=== PATIENT | male | born 1990 | race Caucasian/White ===

== ENCOUNTER 2019-01-18 17:10 | Emergency (ER) | payer MEDICAID ==
[~2019-01-18] VITALS: Ht 182.9 cm; Wt 92.0 kg
[~2019-01-18 17:10] MED LIST: ESCI10TA PO; NO HOME MEDS
[2019-01-18 17:13] VITALS: BP 125/78
== END 2019-01-18 18:56 | disposition home or self-care (01) ==
LOC: ER 17:11
DX: M79.672 Pain in left foot (principal); F10.99 Alcohol use, unspecified with unspecified alcohol-induced disorder; Z79.899 Other long term (current) drug therapy; Y90.9 Presence of alcohol in blood, level not specified
CPT/HCPCS: 73610; 73630; 99283

== ENCOUNTER 2020-01-01 13:01 | Inpatient (IN) | payer MEDICAID ==
[~2020-01-01] VITALS: Ht 180.3 cm; Wt 86.4 kg
[2020-01-01] MEDS ORDERED: naloxone 2mg/2ml inj ONE (13:40)
[2020-01-01] MEDS ORDERED: normal saline 1000ML IV soln IV ONE (13:40)
[2020-01-01 13:47] LABS: BASOPHILS % (AUTO) 0.6 % (0-1); EOSINOPHILS # (AUTO) 0.2 X10'3 (0-0.9); EOSINOPHILS % (AUTO) 2.9 % (0-6); HEMOGLOBIN 12.4 g/dl (14.0-17.9); LYMPHOCYTES # (AUTO) 1.9 X10'3 (1.1-4.8); LYMPHOCYTES % (AUTO) 31.9 % (21-51); MEAN CORPUSCULAR HEMOGLOBIN 26.3 PG (27.0-31.0); MEAN CORPUSCULAR HGB CONC 32.7 g/dL (33.0-36.5); MEAN CORPUSCULAR VOLUME 80.5 FL (78-98); MEAN PLATELET VOLUME 7.3 FL (7.4-10.4); MONOCYTES # (AUTO) 0.4 X10'3 (0-0.9); MONOCYTES % (AUTO) 7.5 % (2-12); NEUTROPHILS # (AUTO) 3.4 X10'3 (1.8-7.7); NEUTROPHILS % (AUTO) 57.1 % (42-75); PLATELET COUNT 323 X10'3 (140-440); RED BLOOD COUNT 4.72 X10'6 (4.70-6.10); RED CELL DISTRIBUTION WIDTH 14.1 % (11.5-14.5)
[2020-01-01 14:00] LABS: ALANINE AMINOTRANSFERASE 26 U/L (12-78); ALBUMIN 3.7 G/DL (3.4-5.0); ALBUMIN/GLOBULIN RATIO 1.1 (1.1-1.5); ALKALINE PHOSPHATASE 86 IU/L (46-116); ANION GAP 7 (8-16); ASPARTATE AMINO TRANSFERASE 21 U/L (10-37); BILIRUBIN,TOTAL 0.7 MG/DL (0.1-1.0); BLOOD UREA NITROGEN 7 MG/DL (7-18); BUN/CREATININE RATIO 7.1 (5.4-32.0); CHLORIDE 103 MMOL/L (99-107); CREATININE 0.98 MG/DL (0.60-1.10); GLUCOSE 98 MG/DL (70-104); POTASSIUM 3.4 MMOL/L (3.5-5.1); SODIUM 140 MMOL/L (135-145); TOTAL CARBON DIOXIDE 30.3 MMOL/L (24-32); TOTAL PROTEIN 7.1 G/DL (6.4-8.2); eGFR 89 ML/MIN
[2020-01-01 14:09] LABS: ACETAMINOPHEN < 2.0 UG/ML (10-30); ETHANOL < 0.010 GM/DL (0.0-0.010)
[2020-01-01] MEDS ORDERED: magnesium 2GM in 50ml NS 50 ML IV PRN (15:25)
[2020-01-01] MEDS ORDERED: potassium CL 10mEq/100ml bag 100 ML IV PRN ×2 (15:25)
[2020-01-01] MEDS ORDERED: acetaminophen 325mg tablet PO PRN ×2 (15:25)
[2020-01-01] MEDS ORDERED: potassium Cl 20 mEq SR tablet PO PRN (15:25)
[2020-01-01] MEDS ORDERED: OLANZapine **IM** 10 mg inj. IM PRN (15:25)
[2020-01-01] MEDS ORDERED: magnesium Cl slow-release 64mg tablet PO PRN (15:25)
[2020-01-01] MEDS ORDERED: magnesium hydroxide 30ml (MOM) UD suspension PO PRN (15:25)
[2020-01-01] MEDS ORDERED: ondansetron/PF 4mg/2ml inj IV PRN (15:25)
[2020-01-01] MEDS ORDERED: mag hydrox/Alum hydrox/simeth 30ml oral suspension PO PRN (15:25)
[2020-01-01] MEDS ORDERED: metoclopramide 5 mg/ml inj IV PRN (15:25)
[2020-01-01] MEDS ORDERED: magnesium 4gm in 100ml NS 100 ML IV PRN (15:25)
[2020-01-01] MEDS: normal saline 1000ml 1,000 ML IV SCH (15:47)
[2020-01-01 15:57] LABS: URINE AMPHETAMINE SCREEN POSITIVE (Neg); URINE BARBITUATE SCREEN NEGATIVE (Neg); URINE BENZODIAZEPINES SCREEN POSITIVE (Neg); URINE CANNABINOID SCREEN NEGATIVE (Neg); URINE COCAINE SCREEN NEGATIVE (Neg); URINE METHADONE SCREEN POSITIVE (Neg); URINE OPIATE SCREEN POSITIVE (Neg); URINE PHENCYCLIDINE SCREEN NEGATIVE (Neg)
[2020-01-01] MEDS ORDERED: LORazepam 2 mg/ml vial IV PRN (16:30)
--- NOTE | 2020-01-01 16:40 | NUR ---
pharmacist and primary rn were unable to do a med rec d/t pt being unresponsive to questions
--- NOTE | 2020-01-01 18:30 | NUR ---
PATIENT IN BED EYES CLOSED RR EVEN UN LABORED AIRWAY PATENT NO OBSERVABLE S/S OF DECREASE GCS PATIENT PATIENT EASY TO AROUSE WITH LIGHT PAIN STIMULATION GCS 14
[2020-01-01] MEDS: K and/or MAG REPLACEMENT MC SCH (20:00)
--- NOTE | 2020-01-01 20:29 | NUR ---
Patient in room ED 18. I have received report from BENJI Wellington and had the opportunity to ask questions and assume patient care.
[2020-01-01 21:00] VITALS: BP 109/53
[2020-01-02 00:11] VITALS: BP 106/68
[2020-01-02] MEDS: normal saline 1000ml 1,000 ML IV SCH ×4 (01:33→21:41)
[2020-01-02 05:55] LABS: ANION GAP 11 (8-16); BLOOD UREA NITROGEN 5 MG/DL (7-18); BUN/CREATININE RATIO 6.3 (5.4-32.0); CALCIUM 8.3 MG/DL (8.5-10.1); CHLORIDE 109 MMOL/L (99-107); GLUCOSE 84 MG/DL (70-104); MAGNESIUM 2.1 MG/DL (1.5-2.4); POTASSIUM 3.3 MMOL/L (3.5-5.1); SODIUM 144 MMOL/L (135-145); TOTAL CARBON DIOXIDE 24.4 MMOL/L (24-32); eGFR > 90 ML/MIN
[2020-01-02 06:00] LABS: HEMOGLOBIN 12.2 g/dl (14.0-17.9); MEAN CORPUSCULAR HEMOGLOBIN 26.5 PG (27.0-31.0); MEAN CORPUSCULAR HGB CONC 32.9 g/dL (33.0-36.5); MEAN CORPUSCULAR VOLUME 80.6 FL (78-98); MEAN PLATELET VOLUME 7.2 FL (7.4-10.4); PLATELET COUNT 318 X10'3 (140-440); RED BLOOD COUNT 4.59 X10'6 (4.70-6.10); RED CELL DISTRIBUTION WIDTH 14.3 % (11.5-14.5); WHITE BLOOD COUNT 6.8 X10'3 (4.5-11.0)
--- NOTE | 2020-01-02 06:28 | NUR ---
Problems reprioritized. Patient report given, questions answered & plan of care reviewed with BENJI Marquis.
--- NOTE | 2020-01-02 06:53 | NUR ---
Patient in room [facility]. I have received report from Michelle LEBLANC and had the opportunity to ask questions and assume patient care.
[2020-01-02] MEDS: K and/or MAG REPLACEMENT MC SCH ×2 (07:22→18:37)
[2020-01-02 07:45] VITALS: BP 140/83
[2020-01-02] MEDS: potassium Cl 20 mEq SR tablet PO PRN ×2 (09:53→18:35)
[2020-01-02] MEDS ORDERED: methadone 10mg tablet PO ONE (10:25)
[2020-01-02 11:38] VITALS: BP 127/90
--- NOTE | 2020-01-02 18:16 | NUR ---
Problems reprioritized. Patient report given, questions answered & plan of care reviewed with Michelle LEBLANC.
--- NOTE | 2020-01-02 18:27 | NUR ---
Patient in room [facility]. I have received report from BENJI Marquis and had the opportunity to ask questions and assume patient care.
[2020-01-02 19:52] VITALS: BP 109/71
--- NOTE | 2020-01-02 20:27 | NUR ---
Pt asked to go smoke when his father gets here. Advised not allowed. Denied offer to obtain nicotine patch.
[2020-01-02 23:56] VITALS: BP 107/66
[2020-01-03 05:25] LABS: HEMOGLOBIN 11.4 g/dl (14.0-17.9); MEAN CORPUSCULAR HEMOGLOBIN 26.5 PG (27.0-31.0); MEAN CORPUSCULAR HGB CONC 32.7 g/dL (33.0-36.5); MEAN CORPUSCULAR VOLUME 81.1 FL (78-98); MEAN PLATELET VOLUME 7.4 FL (7.4-10.4); PLATELET COUNT 261 X10'3 (140-440); RED BLOOD COUNT 4.31 X10'6 (4.70-6.10); RED CELL DISTRIBUTION WIDTH 14.4 % (11.5-14.5); WHITE BLOOD COUNT 4.8 X10'3 (4.5-11.0)
[2020-01-03 05:41] LABS: ALBUMIN 2.7 G/DL (3.4-5.0); ANION GAP 6 (8-16); BLOOD UREA NITROGEN 4 MG/DL (7-18); BUN/CREATININE RATIO 4.6 (5.4-32.0); CHLORIDE 108 MMOL/L (99-107); CREATININE 0.87 MG/DL (0.60-1.10); GLUCOSE 111 MG/DL (70-104); POTASSIUM 3.3 MMOL/L (3.5-5.1); SODIUM 142 MMOL/L (135-145); TOTAL CARBON DIOXIDE 28.2 MMOL/L (24-32); eGFR > 90 ML/MIN
--- NOTE | 2020-01-03 07:01 | NUR ---
Problems reprioritized. Patient report given, questions answered & plan of care reviewed with BENJI Franco
--- NOTE | 2020-01-03 07:02 | NUR ---
Patient in room [facility]. I have received report from Michelle Castrejon RN and had the opportunity to ask questions and assume patient care.
[2020-01-03] MEDS: normal saline 1000ml 1,000 ML IV SCH (07:25)
[2020-01-03 07:44] VITALS: BP 119/75
[2020-01-03] MEDS ORDERED: methadone 10mg tablet PO SCH (08:00)
[2020-01-03] MEDS: K and/or MAG REPLACEMENT MC SCH (08:57)
[2020-01-03] MEDS: potassium Cl 20 mEq SR tablet PO PRN (09:06)
[2020-01-03] MEDS ORDERED: pneumococcal 23-VAL P-sac vacc 25 mcg/0.5ml vial IMVAC ONE (10:00)
[2020-01-03] MEDS ORDERED: FLU VACC QS2020-21(6MOS UP)/PF 60 MCG/0.5 ML SYRINGE IMVAC ONE (10:00)
[2020-01-03 11:00] VITALS: BP 125/80
[2020-01-03] MEDS ORDERED: METH-603 PO (11:06)
--- NOTE | 2020-01-03 14:40 | NUR ---
Pt stable and appropriate for d/c. PIV d/c'd, cannula intact. Reviewed with patient all d/c instructions, meds, f/u appts to [facility], [facility]- pt verbalized understanding, opportunity to ask questions, answers provided. Pt to call PCP with any questions, concerns or s/sx of complications or return to nearest ED. Pt escorted to front lobby by staff member via w/c with all personal belongings. D/C'd home in private vehicle driven by family member.
== END 2020-01-03 14:40 | disposition home or self-care (01) | DRG 812 ==
LOC: ER 13:02 → ED HOLD 15:23 → SUR 3N 20:45
PROVIDERS: ADMIT Family Medicine; ATTEND Family Medicine
PROC: 3E02340 Introduction of Influenza Vaccine into Muscle, Percutaneous Approach (ICD-10-PCS; principal; 2020-01-03)
PROC: 3E0234Z Introduction of Serum, Toxoid and Vaccine into Muscle, Percutaneous Approach (ICD-10-PCS; 2020-01-03)
DX: T50.991A Poisoning by other drugs, medicaments and biological substances, accidental (unintentional), initial encounter (principal); E87.6 Hypokalemia; F13.10 Sedative, hypnotic or anxiolytic abuse, uncomplicated; F15.10 Other stimulant abuse, uncomplicated; G92 Toxic encephalopathy; Y92.89 Other specified places as the place of occurrence of the external cause; Z23 Encounter for immunization
CPT/HCPCS: 36415; 71045; 80048; 80053; 80305; 80320; 80329; 83735; 84443; 85025; 85027; 87081; 90732; 97116; 97161; 97530; 99285; G0378; J2060; J2310; J7030; Q2039

== ENCOUNTER 2020-01-06 03:41 | Emergency (ER) | payer MEDICAID ==
[~2020-01-06] VITALS: Ht 188 cm; Wt 100.0 kg
[~2020-01-06 03:41] MED LIST changes: -ESCI10TA PO; +METH-603 PO; -NO HOME MEDS
--- NOTE | 2020-01-06 03:59 | NUR ---
called poison control:they recomended that patient be observed for 4-6 hours until patient reaches [place].
[2020-01-06 04:17] LABS: BASOPHILS % (AUTO) 0.5 % (0-1); EOSINOPHILS # (AUTO) 0.1 X10'3 (0-0.9); EOSINOPHILS % (AUTO) 1.6 % (0-6); HEMATOCRIT 35.7 % (42.0-52.0); HEMOGLOBIN 11.8 g/dl (14.0-17.9); LYMPHOCYTES # (AUTO) 1.2 X10'3 (1.1-4.8); LYMPHOCYTES % (AUTO) 24.7 % (21-51); MEAN CORPUSCULAR HEMOGLOBIN 26.6 PG (27.0-31.0); MEAN CORPUSCULAR HGB CONC 33.1 g/dL (33.0-36.5); MEAN CORPUSCULAR VOLUME 80.1 FL (78-98); MEAN PLATELET VOLUME 6.9 FL (7.4-10.4); MONOCYTES # (AUTO) 0.4 X10'3 (0-0.9); MONOCYTES % (AUTO) 8.5 % (2-12); NEUTROPHILS # (AUTO) 3.3 X10'3 (1.8-7.7); NEUTROPHILS % (AUTO) 64.7 % (42-75); PLATELET COUNT 281 X10'3 (140-440); RED BLOOD COUNT 4.46 X10'6 (4.70-6.10); RED CELL DISTRIBUTION WIDTH 14.1 % (11.5-14.5)
[2020-01-06 04:32] LABS: ALANINE AMINOTRANSFERASE 18 U/L (12-78); ALBUMIN 3.2 G/DL (3.4-5.0); ALKALINE PHOSPHATASE 79 IU/L (46-116); ANION GAP 7 (8-16); ASPARTATE AMINO TRANSFERASE 18 U/L (10-37); BILIRUBIN,TOTAL 0.3 MG/DL (0.1-1.0); BLOOD UREA NITROGEN 9 MG/DL (7-18); BUN/CREATININE RATIO 10.5 (5.4-32.0); CALCIUM 7.7 MG/DL (8.5-10.1); CHLORIDE 105 MMOL/L (99-107); CREATININE 0.86 MG/DL (0.60-1.10); GLUCOSE 113 MG/DL (70-104); SODIUM 141 MMOL/L (135-145); TOTAL CARBON DIOXIDE 28.9 MMOL/L (24-32); TOTAL PROTEIN 6.4 G/DL (6.4-8.2); eGFR > 90 ML/MIN
[2020-01-06] MEDS ORDERED: magnesium oxide 400mg tablet PO ONE (04:40)
[2020-01-06] MEDS ORDERED: potassium Cl 20 mEq SR tablet PO ONE (04:40)
[2020-01-06 04:42] LABS: ETHANOL < 0.010 GM/DL (0.0-0.010)
[2020-01-06 05:01] LABS: ACETAMINOPHEN < 2.0 UG/ML (10-30)
[2020-01-06 05:08] LABS: CLARITY,URINE CLEAR (Clear); COLOR,URINE YELLOW (Yellow); GLUCOSE, URINE NEGATIVE (Neg); KETONES,URINE NEGATIVE (Neg); LEUKOCYTE ESTERASE ,URINE NEGATIVE (Neg); NITRITES, URINE NEGATIVE (Neg); OCCULT BLOOD,URINE TRACE-INTACT (Neg); PH,URINE 7.5 (4.8-8.0); PROTEIN,URINE NEGATIVE (Neg); UROBILINOGEN,URINE 0.2 E.U/dL (0.2-1.0)
[2020-01-06 05:13] LABS: BACTERIA,URINE FEW /HPF (Neg); SQUAMOUS EPITHELIAL CELL,UR FEW /LPF (FEW); UA COLLECTION TYPE STRAIGHT CATH; WBC,URINE NONE SEEN /HPF (0-4)
[2020-01-06 05:20] LABS: URINE AMPHETAMINE SCREEN POSITIVE (Neg); URINE BARBITUATE SCREEN NEGATIVE (Neg); URINE BENZODIAZEPINES SCREEN POSITIVE (Neg); URINE CANNABINOID SCREEN NEGATIVE (Neg); URINE COCAINE SCREEN NEGATIVE (Neg); URINE METHADONE SCREEN POSITIVE (Neg); URINE OPIATE SCREEN POSITIVE (Neg); URINE PHENCYCLIDINE SCREEN NEGATIVE (Neg)
--- NOTE | 2020-01-06 07:25 | NUR ---
Poison control called and updated. Poison control states that the pt will be cleared from there consultation at 1000 this morning.
[2020-01-06 09:00] VITALS: BP 122/82
--- NOTE | 2020-01-06 10:02 | NUR ---
FAXED PACKET [facility]
--- NOTE | 2020-01-06 10:43 | NUR ---
pt walked over from main er room 3 to overflow 26
[2020-01-06] MEDS ORDERED: methadone 10mg tablet PO SCH (11:50)
== END 2020-01-06 15:03 | disposition home or self-care (01) ==
LOC: ER 03:42
DX: T42.4X4A Poisoning by benzodiazepines, undetermined, initial encounter (principal); E87.6 Hypokalemia; D64.9 Anemia, unspecified; I10 Essential (primary) hypertension; Z79.899 Other long term (current) drug therapy; Y99.8 Other external cause status
CPT/HCPCS: 36415; 80053; 80305; 80320; 80329; 81001; 84443; 85025; 93005; 99285

== ENCOUNTER 2023-05-20 20:04 | Emergency (ER) | payer MEDICAID ==
[~2023-05-20] VITALS: Ht 182.9 cm; Wt 97.0 kg
[2023-05-20 20:08] VITALS: BP 129/98; PULSE 85; RESP 20; TEMP 98.6; O2SAT 99
[2023-05-20] MEDS: sulfamethoxazole/trimethoprim DS (800/160mg) tablet PO ONE (23:21)
[2023-05-20] MEDS: HYDROcodone/acetaminophen 10/325mg tab PO ONE (23:21)
[2023-05-20] MEDS: naproxen 500mg tablet PO ONE (23:21)
[2023-05-20] MEDS: TETanus/Pertussis (Acell)/Diphther VAC/PF (Tdap-Adult) 0.5ml syringe IMVAC ONE (23:22)
[2023-05-21] MEDS: LIDOcaine 1% W/epiNEPHrine 1:100,000 20ml vial IJ ONE
[2023-05-21] MEDS ORDERED: SULF1TAB49 PO (00:55)
== END 2023-05-21 01:07 | disposition home or self-care (01) ==
LOC: ER 20:05
DX: S01.112A Laceration without foreign body of left eyelid and periocular area, initial encounter (principal); Y08.89XA Assault by other specified means, initial encounter; Y93.89 Activity, other specified; Y92.89 Other specified places as the place of occurrence of the external cause; Y99.8 Other external cause status
CPT/HCPCS: 12051; 73610; 90471; 90715; 99284; A6449